=== PATIENT | male | born 1960 | race Two or more races ===

== ENCOUNTER 2016-08-31 19:57 | Emergency (ER) | payer BC ==
[2016-09-01] MEDS ORDERED: LIDOCAINE 1% INJ-PF (10 MG/ML) 30 ML SDV INJ ONE (00:43)
[2016-09-01] MEDS ORDERED: DIPH/PERTUSS(ACELL)/TETANUS VAC/PF 0.5 ML SYR (>=10YO) IM ONE (00:44)
--- NOTE | 2016-09-01 00:48 | ER Document Report ---
ED Wound - General Mode of Arrival: Ambulatory Information source: Patient - HPI Patient complains to provider of: Laceration Occurred: This evening Context: Injury Associated Symptoms: Other - see notes above <THAO BONILLA - Last Filed: 09/01/16 00:43> <AUGIE GARCIA - Last Filed: 09/01/16 01:41> - General Chief Complaint: Laceration Stated Complaint: WRIST LACERATION Time Seen by Provider: 09/01/16 00:31 Notes: 55 year old male with history of hypertension, GA (December 2015), and CAD presents to the ED complaining of a laceration to the left ulnar aspect of his wrist that occurred this evening when 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 Patient reports to have put Neosporin on the wound and applied a pressure dressing. (THAO BONILLA) - Related Data Allergies/Adverse Reactions: codeine Adverse Reaction (Verified 08/31/16 20:58) Hives Past Medical History - General Information source: Patient - Social History Smoking Status: Current Every Day Smoker Chew tobacco use (# tins/day): No Frequency of alcohol use: None Drug Abuse: None Family History: Reviewed & Not Pertinent - Past Medical History Cardiac Medical History: Reports: Hx Coronary Artery Disease, Hx Heart Attack - December 2015, Hx Hypertension Denies: Hx Hypercholesterolemia Renal/ Medical History: Denies: Hx Peritoneal Dialysis Past Surgical History: Reports: Hx Cardiac Catheterization - unsuccessful - Immunizations Hx Diphtheria, Pertussis, Tetanus Vaccination: Yes <THAO BONILLA - Last Filed: 09/01/16 00:43> Review of Systems - Review of Systems Constitutional: No symptoms reported EENT: No symptoms reported Cardiovascular: No symptoms reported Respiratory: No symptoms reported Gastrointestinal: No symptoms reported Genitourinary: No symptoms reported Male Genitourinary: No symptoms reported Musculoskeletal: No symptoms reported Skin: See HPI, Other - laceration to the left ulnar wrist Hematologic/Lymphatic: No symptoms reported Neurological/Psychological: No symptoms reported <THAO BONILLA - Last Filed: 09/01/16 00:43> Physical Exam - General General appearance: Alert In distress: None - HEENT Head: Normocephalic, Atraumatic Eyes: Normal Extraocular movements intact: Yes Pupils: PERRL - Respiratory Respiratory status: No respiratory distress - Cardiovascular Rhythm: Regular - Abdominal Inspection: Normal - Back Back: Normal - Extremities General upper extremity: Normal ROM. No: Normal inspection - see wrist exam below General lower extremity: Normal inspection, Normal ROM Wrist: Laceration - 4 cm transverse laceration to the volar, ulnar aspect of the left wrist that extends into the subcutanous space. Distal motor and neurological sensation intact.. No: Normal - Neurological Neuro grossly intact: Yes - Psychological Associated symptoms: Normal affect, Normal mood - Skin Skin Temperature: Warm Skin Moisture: Dry Skin Color: Normal <THAO BONILLA - Last Filed: 09/01/16 00:43> Procedures - Laceration/Wound Repair Left Volar Wrist Time completed: 01:40 Wound length (cm): 4 Wound's Depth, Shape: Into muscle Laceration pre-procedure: Sterile drapes applied, Shur-Clens applied Anesthetic type: 1% Lidocaine Volume Anesthetic (mLs): 4 Wound explored: Clean, No foreign body removed Irrigated w/ Saline (mLs): 20 Wound Debrided: Minimal Wound Repaired With: Sutures Suture Size/Type: 4:0 Number of Sutures: 7 Layer Closure?: No Post-procedure wound care: Sterile dressing applied Post-procedure NV exam normal: Yes Complications: No <AUGIE GARCIA - Last Filed: 09/01/16 01:41> Discharge <THAO BONILLA - Last Filed: 09/01/16 00:43> <AUGIE GARCIA - Last Filed: 09/01/16 01:41> - Discharge Clinical Impression: Laceration of wrist Qualifiers: Encounter type: initial encounter Laterality: left Qualified Code(s): S61.512A - Laceration without foreign body of left wrist, initial encounter Condition: Stable Disposition: HOME, SELF-CARE Additional Instructions: Laceration Care: Your laceration has been sutured to keep the skin edges aligned during healing. The time of suture removal depends on the nature and location of your cut. Please follow the care instructions the doctor has outlined for you and return for further care, according to the schedule you've been given. Keep the wound and dressing clean. Unless you were told otherwise, you may shower daily, blotting the wound dry with a clean, unused towel. At other times, If the dressing gets wet or blood soaked, remove it and blot the wound dry, then reapply a new dressing. Unless you were instructed otherwise, dressings should be changed at least daily. If any signs of infection occur (swelling, redness, increasing tenderness, red streaks, tender lumps in the armpit or groin above the laceration, or fever) , see the doctor immediately. Keep the wound clean and dressed. Return in 7-10 days for suture removal. Return sooner if any signs of infection. Scribe Attestation: 09/01/16 01:40 I personally performed the services described in the documentation, reviewed and edited the documentation which was dictated to the scribe in my presence, and it accurately records my words and actions. (AUGIE GARCIA) Scribe Documentation - Scribe Written by Vic:: Vic Baker, 09/01/2016 [id number] acting as scribe for :: Santi <THAO BONILLA - Last Filed: 09/01/16 00:43>
[2016-09-01 01:49] VITALS: BP 123/76
== END 2016-09-01 01:50 | disposition home or self-care (01) ==
LOC: ER 19:57
PROC: 0HQEXZZ Repair Left Lower Arm Skin, External Approach (ICD-10-PCS; principal; 2016-08-31)
DX: S61.512A Laceration without foreign body of left wrist, initial encounter (principal); I10 Essential (primary) hypertension; I25.2 Old myocardial infarction; I25.10 Atherosclerotic heart disease of native coronary artery without angina pectoris; W45.8XXA Other foreign body or object entering through skin, initial encounter; F17.200 Nicotine dependence, unspecified, uncomplicated
CPT/HCPCS: 99282; 90471; 90715; 12002; J3490